=== PATIENT | female | born 1935 | race Caucasian/White ===

== ENCOUNTER 2017-07-14 10:32 | Inpatient (IN) | payer OTHER ==
[~2017-07-14] VITALS: Ht 147.3 cm; Wt 55.9 kg
[2017-07-14 11:19] LABS: BASOPHIL % 0.3 % (0-2); PLATELET COUNT 283 x10^3mcL (130-400)
[2017-07-14 11:26] LABS: RED CELL DISTRIBUTION WIDTH 18.9 % (11.5-14.5)
[2017-07-14 11:34] LABS: ALKALINE PHOSPHATASE 71 U/L (46-116); ALT/SGPT 33 U/L (14-59); AST/SGOT 22 U/L (15-37); BILIRUBIN TOTAL 0.5 mg/dL (0.20-1.00); CALCIUM 7.7 mg/dL (8.5-10.1); CARBON DIOXIDE 27.4 mmol/L (21-32); CHLORIDE SERUM 101 mmol/L (98-107); CREATININE SERUM 0.7 mg/dL (0.6-1.0); GLUCOSE SERUM 109 mg/dL (74-106); LIPASE 207 IU/L (73-393); SODIUM SERUM 137 mmol/L (136-145); TOTAL PROTEIN, SERUM 6.8 g/dL (6.4-8.2)
[2017-07-14 11:40] LABS: ALBUMIN 3.2 g/dL (3.4-5.0); POTASSIUM SERUM 2.8 mmol/L (3.5-5.1)
[2017-07-14 12:39] LABS: UA SPECIFIC GRAVITY 1.015 (1.005-1.035); microscopic required? YES; urine erythrocyte TRACE (NEGATIVE)
[2017-07-14] MEDS ORDERED: LEVO-T25 MCG PO (12:54)
[2017-07-14] MEDS ORDERED: NATURE'S BLEND F1 MG PO (12:55)
[2017-07-14] MEDS ORDERED: GOOD SENSE ALL10 MG PO (12:55)
[2017-07-14] MEDS ORDERED: DILTIAZEM HCL240 MG PO (12:55)
[2017-07-14] MEDS ORDERED: QVAR0.08 MG/Ac (12:55)
[2017-07-14] MEDS ORDERED: ASPIR LOW81 MG PO (12:55)
[2017-07-14] MEDS ORDERED: [UNRECOGNIZED DRUG - OTHER] (12:56)
[2017-07-14] MEDS ORDERED: PREDNISONE20 MG PO (12:56)
[2017-07-14 13:11] VITALS: BP 104/88
[2017-07-14 13:24] LABS: T3 TOTAL 0.88 ng/mL
[2017-07-14 13:29] LABS: MAGNESIUM 2.1 mg/dL (1.8-2.4); PHOSPHOROUS 2.3 mg/dL (2.5-4.9)
[2017-07-14 13:30] LABS: CHOLESTEROL/HDL RATIO 2.5
[2017-07-14 13:51] VITALS: BP 94/47
[2017-07-14 14:08] LABS: FREE T4 0.98 ng/dL (0.76-1.46); FREE THYROXINE INDEX 2.4 ug/dL (1.4-4.5); T4(THYROXINE) 6.7 ug/dL (4.7-13.3)
[2017-07-14 15:10] VITALS: BP 101/50
[2017-07-14 15:55] VITALS: BP 99/51
[2017-07-14 17:38] VITALS: BP 124/48
[2017-07-14 22:37] VITALS: BP 101/45
[2017-07-15 06:37] VITALS: BP 159/72
[2017-07-15 06:43] LABS: BASOPHIL % 0.2 % (0-2); PLATELET COUNT 283 x10^3mcL (130-400)
[2017-07-15 06:53] LABS: RED CELL DISTRIBUTION WIDTH 19.9 % (11.5-14.5)
[2017-07-15 07:23] LABS: CALCIUM 7.3 mg/dL (8.5-10.1); CARBON DIOXIDE 24.8 mmol/L (21-32); CHLORIDE SERUM 107 mmol/L (98-107); CREATININE SERUM 0.7 mg/dL (0.6-1.0); GLUCOSE SERUM 134 mg/dL (74-106); MAGNESIUM 2.2 mg/dL (1.8-2.4); PHOSPHOROUS 2.6 mg/dL (2.5-4.9); POTASSIUM SERUM 4.1 mmol/L (3.5-5.1); SODIUM SERUM 143 mmol/L (136-145)
[2017-07-15 08:30] VITALS: BP 154/79
[2017-07-15 12:30] VITALS: BP 108/54
[2017-07-15] MEDS ORDERED: PROMETHAZINE W120 ML PO (14:21)
[2017-07-15] MEDS ORDERED: MAGNESIUM OXID400 MG PO (14:25)
[2017-07-15] MEDS ORDERED: LOMOTIL1 TAB PO (14:26)
[2017-07-15] MEDS ORDERED: PROAIR HFA8.5 GM IH (14:29)
[2017-07-15] MEDS ORDERED: RENAL CAPS1 SGL PO (14:30)
[2017-07-15] MEDS ORDERED: CARTIA XT240 M1 PO (14:35)
[2017-07-15] MEDS ORDERED: MET2.5 PO (14:37)
[2017-07-15 15:32] VITALS: Ht 147.3 cm; Wt 55.9 kg
[2017-07-15 16:11] VITALS: BP 132/84
[2017-07-15 22:26] VITALS: BP 138/79
[2017-07-16 05:55] VITALS: BP 136/76
[2017-07-16 07:32] LABS: CARBON DIOXIDE 26.9 mmol/L (21-32); CHLORIDE SERUM 109 mmol/L (98-107); CREATININE SERUM 0.5 mg/dL (0.6-1.0); GLUCOSE SERUM 152 mg/dL (74-106); MAGNESIUM 2.4 mg/dL (1.8-2.4); PHOSPHOROUS 2.6 mg/dL (2.5-4.9); POTASSIUM SERUM 3.2 mmol/L (3.5-5.1); SODIUM SERUM 143 mmol/L (136-145)
[2017-07-16 07:54] LABS: PLATELET COUNT 264 x10^3mcL (130-400)
[2017-07-16 07:58] LABS: RED CELL DISTRIBUTION WIDTH 19.1 % (11.5-14.5)
[2017-07-16 09:30] VITALS: BP 130/75
[2017-07-16] MEDS ORDERED: BD LACTINEX1.4 MG PO (10:34)
[2017-07-16] MEDS ORDERED: LEVAQUIN750 MG PO (10:34)
[2017-07-16 11:08] LABS: BAND NEUTROPHIL 8 % (0-10); BASOPHIL 0 % (0-2); MONOCYTE 4 % (0-7); SEGMENTED NEUTROPHILS 86 % (37-75)
[2017-07-16 11:10] LABS: rbc morphology (normal/abnorm) ABNORMAL (NORMAL)
[2017-07-16 11:11] LABS: ovalocyte/elliptocyte 1+; schistocyte (helmet cell) 1+
[2017-07-16 12:12] VITALS: BP 130/75
== END 2017-07-16 14:20 | disposition home or self-care (01) | DRG 871 ==
LOC: ED 10:32 → DU 12:47
PROVIDERS: Emergency Medicine; Family Medicine
DX: A41.9 Sepsis, unspecified organism (principal); J69.0 Pneumonitis due to inhalation of food and vomit; J44.1 Chronic obstructive pulmonary disease with (acute) exacerbation; N39.0 Urinary tract infection, site not specified; E44.1 Mild protein-calorie malnutrition; D68.69 Other thrombophilia; E11.59 Type 2 diabetes mellitus with other circulatory complications; E11.65 Type 2 diabetes mellitus with hyperglycemia; J09.X2 Influenza due to identified novel influenza A virus with other respiratory manifestations; R55 Syncope and collapse; R31.9 Hematuria, unspecified; E87.6 Hypokalemia; I10 Essential (primary) hypertension; E78.2 Mixed hyperlipidemia; N39.3 Stress incontinence (female) (male); E89.0 Postprocedural hypothyroidism; Z68.25 Body mass index [BMI] 25.0-25.9, adult; Z79.82 Long term (current) use of aspirin; Z79.52 Long term (current) use of systemic steroids
CPT/HCPCS: 82962; 83880; 84439; 87804; 97110-GP; 97116-GP; 97530-GP; J0132; J1956; J2920; J2930; J3480; J3490; J7030; J7620; J7633; Q0092

== ENCOUNTER 2018-03-29 14:27 | Inpatient (IN) | payer OTHER ==
[~2018-03-29] VITALS: Ht 147.3 cm; Wt 52.4 kg
[~2018-03-29 14:27] MED LIST: ASPIR LOW81 MG PO; BD LACTINEX1.4 MG PO; CARTIA XT240 M1 PO; DILTIAZEM HCL240 MG PO; GOOD SENSE ALL10 MG PO; LEVAQUIN750 MG PO; LEVO-T25 MCG PO; LOMOTIL1 TAB PO; MAGNESIUM OXID400 MG PO; MET2.5 PO; NATURE'S BLEND F1 MG PO; PREDNISONE20 MG PO; PROAIR HFA8.5 GM IH; PROMETHAZINE W120 ML PO; QVAR0.08 MG/Ac; RENAL CAPS1 SGL PO; [UNRECOGNIZED DRUG - OTHER]
[2018-03-29 14:35] VITALS: Ht 147.3 cm; Wt 52.4 kg
[2018-03-29 15:50] LABS: BASOPHIL % 0.9 % (0-2); PLATELET COUNT 255 x10^3mcL (130-400)
[2018-03-29 16:02] LABS: RED CELL DISTRIBUTION WIDTH 28.1 % (11.5-14.5)
[2018-03-29 16:12] LABS: CALCIUM 8.3 mg/dL (8.5-10.1); CARBON DIOXIDE 28.1 mmol/L (21-32); CHLORIDE SERUM 109 mmol/L (98-107); CREATININE SERUM 0.7 mg/dL (0.6-1.0); GLUCOSE SERUM 120 mg/dL (74-106); POTASSIUM SERUM 3.3 mmol/L (3.5-5.1); SODIUM SERUM 144 mmol/L (136-145)
[2018-03-29 16:16] LABS: ALBUMIN 3.5 g/dL (3.4-5.0); ALKALINE PHOSPHATASE 66 U/L (46-116); ALT/SGPT 34 U/L (14-59); AST/SGOT 18 U/L (15-37); TOTAL PROTEIN, SERUM 7.3 g/dL (6.4-8.2)
[2018-03-29] MEDS ORDERED: PRE20 PO (18:42)
[2018-03-29] MEDS ORDERED: SYMBICORT1 AE3 (18:43)
[2018-03-29] MEDS ORDERED: METHOTREXATE2.5 M2 PO (18:43)
[2018-03-29] MEDS ORDERED: PROAIR HFA8.5 GM (18:44)
[2018-03-29 19:45] VITALS: BP 153/52
[2018-03-29 21:05] VITALS: BP 153/52
[2018-03-30 04:20] LABS: microscopic required? YES; urine erythrocyte TRACE (NEGATIVE)
[2018-03-30 05:42] VITALS: BP 137/60
[2018-03-30 06:04] LABS: PLATELET COUNT 243 x10^3mcL (130-400)
[2018-03-30 06:14] LABS: CALCIUM 8.1 mg/dL (8.5-10.1); CARBON DIOXIDE 23.3 mmol/L (21-32); CHLORIDE SERUM 109 mmol/L (98-107); CREATININE SERUM 0.6 mg/dL (0.6-1.0); GLUCOSE SERUM 150 mg/dL (74-106); POTASSIUM SERUM 3.9 mmol/L (3.5-5.1); SODIUM SERUM 143 mmol/L (136-145)
[2018-03-30 06:23] LABS: T4(THYROXINE) 7.8 ug/dL (4.7-13.3)
[2018-03-30 06:37] LABS: BASOPHIL % 0 % (0-2); RED CELL DISTRIBUTION WIDTH 27.7 % (11.5-14.5)
[2018-03-30 08:33] LABS: ERYTHROCYTE SED RATE 8 mm/hr (0-30)
[2018-03-30 08:54] VITALS: BP 132/75
[2018-03-30] MEDS ORDERED: DILTIAZEM HCL120 M2 PO (10:12)
[2018-03-30 11:05] VITALS: BP 154/69
[2018-03-30 12:31] VITALS: BP 157/77
[2018-03-30 15:59] VITALS: BP 157/77
[2018-03-30 16:30] VITALS: BP 156/70
[2018-03-31 07:33] LABS: RAPID PLASMA REAGIN Non Reactive (Non Reactive)
[2018-03-31 09:05] LABS: RHEUMATOID ARTHRITIS FACTOR 14.5 IU/mL (0.0-13.9)
== END 2018-03-30 16:58 | disposition home or self-care (01) | DRG 312 ==
LOC: ED 14:27 → DU 18:20
PROVIDERS: Emergency Medicine; Internal Medicine
DX: R55 Syncope and collapse (principal); J44.1 Chronic obstructive pulmonary disease with (acute) exacerbation; R09.02 Hypoxemia; M48.54XD Collapsed vertebra, not elsewhere classified, thoracic region, subsequent encounter for fracture with routine healing; E87.6 Hypokalemia; J45.909 Unspecified asthma, uncomplicated; R22.2 Localized swelling, mass and lump, trunk; I10 Essential (primary) hypertension; E03.9 Hypothyroidism, unspecified; Z68.24 Body mass index [BMI] 24.0-24.9, adult; Z79.82 Long term (current) use of aspirin; Z79.52 Long term (current) use of systemic steroids; Z98.890 Other specified postprocedural states
CPT/HCPCS: 36600; 86431; J1956; J2920; J3535; J7030; J7050; J7620; J7626; Q0092; Q9967